=== PATIENT | female | born 1970 | race Caucasian/White ===

== ENCOUNTER → 2017-01-04 | Outpatient (CLI) | payer SELFPAY ==
--- NOTE | 2017-01-04 10:23 | USB ---
Reason for exam: additional evaluation requested from abnormal screening. History: Family history of breast cancer in mother at age 41. Benign excisional biopsy of the right breast, November 2013. Benign excisional biopsy of the right breast, May 2013. Physical Findings: Nurse Summary: Patient complains of right breast lump pea size, comes and goes x 1 month (nurse noy). US Breast Workup Limited RT Technologist: Aubrie Bearden Right breast ultrasound demonstrates a 0.4 x 0.3 x 0.4cm oval, cystic, benign lesion at 9 o'clock nipple. No solid masses. No suspicious sonographic abnormality. These results were verbally communicated with the patient and result sheet given to the patient on 01/04/17. ASSESSMENT: Benign, BI-RAD 2 RECOMMENDATION: Return to routine screening mammogram schedule for both breasts. Back on schedule.
== END | disposition home or self-care (01) ==
LOC: RADUSWWP 09:25
PROVIDERS: ATTEND Obstetrics & Gynecology
DX: R92.8 Other abnormal and inconclusive findings on diagnostic imaging of breast (principal)

== ENCOUNTER → 2018-12-11 | Outpatient (CLI) | payer SELFPAY ==
--- NOTE | 2018-12-12 07:49 | MM ---
Reason for exam: additional evaluation requested from abnormal screening. Last mammogram was performed less than 1 month ago. History: Patient is postmenopausal. Family history of breast cancer in mother at age 41. Benign excisional biopsy of the right breast, November 2013. Benign excisional biopsy of the right breast, May 2013. Physical Findings: Nurse did not find any significant physical abnormalities on exam. MG Work Up Mamm w CAD LT LM and spot compression MLO view(s) were taken of the left breast. Prior study comparison: November 30, 2018, bilateral foundation screening mammo. December 27, 2017, bilateral foundation screening mammo. The breast tissue is heterogeneously dense. This may lower the sensitivity of mammography. Left asymmetries appear similar to priors and improve on spot images. These results were verbally communicated with the patient and result sheet given to the patient on 12/11/18. ASSESSMENT: Benign, BI-RAD 2 RECOMMENDATION: Return to routine screening mammogram schedule for both breasts.
== END | disposition home or self-care (01) ==
LOC: RADMAMWWP 14:54
PROVIDERS: ATTEND Obstetrics & Gynecology
DX: R92.8 Other abnormal and inconclusive findings on diagnostic imaging of breast (principal)
CPT/HCPCS: 77065

== ENCOUNTER → 2020-12-25 | Outpatient (CLI) | payer SELFPAY ==
--- NOTE | 2020-12-25 10:23 | MM ---
Reason for exam: additional evaluation requested from abnormal screening. Last mammogram was performed less than 1 month ago. History: Patient is postmenopausal. Family history of breast cancer in mother at age 41. Benign excisional biopsy of the right breast, November 2013. Benign excisional biopsy of the right breast, May 2013. Physical Findings: Nurse did not find any significant physical abnormalities on exam. MG Work Up Mamm w CAD RT Spot compression CC, spot compression MLO, CC with magnification, LM with magnification, and LM view(s) were taken of the right breast. Prior study comparison: December 23, 2020, bilateral foundation screening mammo. December 20, 2019, bilateral foundation screening mammo. The breast tissue is extremely dense which could obscure a lesion on mammography. Finding: There are suspicious fine, grouped/clustered calcifications in the upper inner quadrant, posterior position of the right breast, may be circumscribed with new density. New finding since December 23, 2020 and December 20, 2019. These results were verbally communicated with the patient and result sheet given to the patient on 12/25/20. ASSESSMENT: Suspicious, BI-RAD 4 RECOMMENDATION: Stereotactic core biopsy of the right breast. Called Dr. Beverly's office with mammographic findings and has scheduled an appointment for the patient for 02/04/21 at 1:[address] Anderson. Biopsy scheduled for 02/05/21 at 8:00. PRELIMINARY REPORT CALLED AND FAXED TO DR. ANDERSON ON 12/25/20.
== END | disposition home or self-care (01) ==
LOC: RADMAMWWP 06:58
PROVIDERS: ATTEND Obstetrics & Gynecology
DX: R92.1 Mammographic calcification found on diagnostic imaging of breast (principal); Z80.3 Family history of malignant neoplasm of breast; Z78.0 Asymptomatic menopausal state
CPT/HCPCS: 77065

== ENCOUNTER → 2021-02-04 | Outpatient (CLI) | payer SELFPAY ==
[2021-02-04 13:22] VITALS: BP 117/74; PULSE 96; RESP 16; TEMP 98.4
--- NOTE | 2021-02-04 13:57 | P.GSHP ---
History of Present Illness H&P Date: 02/04/21 Chief Complaint: Abnormal right breast mammogram Camryn is a 50 year old white female who had a bilateral breast mammogram performed on 1020 721. The patient was noted to have some calcifications of concern in the right breast and additional views of the right breast were performed on 1020 921. Right breast grouped/clustered calcifications were noted in the upper inner quadrant and a stereotactic core biopsy was recommended. In the past she has had a right breast stereotactic core biopsy followed by an open biopsy of the right side 6 months later. These were benign. She was subsequently seen at [facility] where she would of alternating every 6 month MRI and mammogram. The last time these were done was 2014 for the last MRI. She however does get mammograms yearly here at [facility]. The patient does not feel anything of concern in either breast. She is not complaining of any trauma or infection in either breast. Caffeine:2 cups/day nicotine: none, stopped in 1997 for 8 years < 1/PPD chocolate: occasional Family history: Mother: Breast cancer in 40's did well maternal grandfather: melanoma maternal grandmother: colon cancer paternal grandmother: brain tumor Hormonal History: menarche: 14 , breast fed: no, age at first : 19 menopause: Ablation however patient has breakthrough bleeding; starting menopause now control pills: 10 years, stopped at 28 hormones: none Surgical History: tubal gallbladder breast biopsy Medical History: hypothyroid Social History: Nicotine: Negative Alcohol: Negative Drugs: Negative - Constitutional Constitutional: Reports sweats - EENT Eyes: denies blurred vision, denies pain Ears: deny: decreased hearing, tinnitus Ears, nose, mouth and throat: Denies headache, Denies sore throat - Breasts Breasts: bilateral: as per HPI - Cardiovascular Cardiovascular: Denies chest pain, Denies shortness of breath - Respiratory Respiratory: Denies cough, Denies 7 - Gastrointestinal Gastrointestinal: Denies abdominal pain, Denies diarrhea, Denies nausea, Denies vomiting - Genitourinary (Female) Genitourinary: Denies dysuria, Denies hematuria - Menstruation Menstruation: Reports as per HPI - Musculoskeletal Musculoskeletal: Denies myalgias - Integumentary Integumentary: Denies pruritus, Denies rash - Neurological Neurological: Denies numbness, Denies weakness - Psychiatric Psychiatric: Denies anxiety, Denies depression - Endocrine Endocrine: Reports weight change, Denies fatigue - Hematologic/Lymphatic Comment: none - Allergic/Immunologic Allergic/Immunologic: Reports as per HPI Past Medical History Past Medical History: Thyroid Disorder History of Any Multi-Drug Resistant Organisms: None Reported Past Surgical History: Breast Surgery, Cholecystectomy, Tubal Ligation Additional Past Surgical History / Comment(s): right breast benign us core/excisional bx-2014 Past Anesthesia/Blood Transfusion Reactions: No Reported Reaction Past Psychological History: No Psychological Hx Reported Smoking Status: Former smoker Past Alcohol Use History: Occasional Past Drug Use History: None Reported Medications and Allergies Home Medications Medication Instructions Recorded Confirmed Type Ergocalciferol [Vitamin D2 (1250 1,250 mcg PO WEEKLY 01/28/21 02/04/21 History Mcg = 06106 Iu)] Levothyroxine Sodium [Levoxyl] 88 mcg PO DAILY 01/28/21 02/04/21 History Allergies Allergy/AdvReac Type Severity Reaction Status Date / Time clarithromycin [From Biaxin] AdvReac Vomiting Verified 02/04/21 13:15 codeine AdvReac Vomiting Verified 02/04/21 13:15 Surgical - Exam Vital Signs Temp Pulse Resp BP 98.4 F 96 16 117/74 02/04/21 13:16 02/04/21 13:16 02/04/21 13:16 02/04/21 13:16 - General no distress - Eyes normal ocular movement - ENT no hearing loss - Neck trachea midline - Respiratory normal respiratory effort - Cardiovascular Rhythm: regular Heart Sounds: normal: S1, S2 - Abdomen Abdomen: soft - Integumentary normal turgor - Neurologic no disoriented, no combative - Musculoskeletal normal gait - Psychiatric oriented to time, oriented to person, oriented to place, speech is normal, memory intact Breast Exam: BRA: 36D inspection: bilateral grade 2/3 ptosis Operation: Right breast: Well-healed scar from prior surgery, no dominant masses or nodules of concern dense breast Right axilla: No adenopathy of concern Left breast: Positional exam fibrocystic changes dense breasts no dominant masses or nodules of concern Left axilla: No adenopathy of concern Results Mammogram reviewed personally with Dr. Fermin, additional views to be reviewed Assessment and Plan Assessment: Impression: Microcalcifications of concern right breast upper inner quadrant Plan: Stereotactic core biopsy right breast Risk and benefits of the procedure discussed with the patient. She understands and wishes to proceed. Risks include but are not limited to bleeding, infection, reaction to the anesthetic. There is a possibility that the lesion will not be well seen on the stereotactic pipe stripper film in which case it may be necessary to cancel the procedure. Alternatives such as watchful waiting or open biopsy I discussed but not recommended. Cc: Dr. Forde, Dr. Beverly
== END ==
LOC: WWCWWP 12:56
PROVIDERS: ATTEND Surgery
DX: R92.0 Mammographic microcalcification found on diagnostic imaging of breast (principal); E03.9 Hypothyroidism, unspecified; Z87.891 Personal history of nicotine dependence; Z88.1 Allergy status to other antibiotic agents; Z88.5 Allergy status to narcotic agent

== ENCOUNTER → 2021-02-05 | Day surgery (SDC) | payer SELFPAY ==
[2021-02-05 07:09] VITALS: RESP 16
--- NOTE | 2021-02-05 08:48 | P.PCN ---
Date of Procedure: 02/05/21 Preoperative Diagnosis: microcalcifications of concern right breast Postoperative Diagnosis: Same Procedure(s) Performed: sterotactic core biopsy of the right breast Anesthesia: local Surgeon: Darby Anderson Pathology: other (Breast tissue/microcalcifications noted inguinal biopsy specimen) Condition: stable Disposition: same day Indications for Procedure: Microcalcifications of concern right breast upper inner quadrant Operative Findings: Microcalcifications of concern noted in core biopsy specimen Description of Procedure: The patient is a 50-year-old white female noted to have microcalcifications of concern on her mammogram of [id number] in the right breast, upper inner quadrant. Stereotactic core biopsy was recommended. Risks and benefits of the procedure were discussed with the patient. Risks include but are not limited to bleeding, infection, reaction to the anesthetic. Alternatives such as watchful waiting or open biopsy were discussed but not recommended. The patient wished to proceed with stereotactic core biopsy. The patient was taken to the stereotactic core biopsy room. A presiding judge film was obtained. A medial to lateral approach was utilized. The area of concern was identified. The lesion was targeted. The breast was prepped using Betadine. 20 mL of 1% lidocaine were used to anesthetize the area of concern. A 9-gauge vacuum-assisted core rotating biopsy needle was driven to the correct coordinates. A prefire film was obtained and the needle was noted to be in the correct location. This was followed by a post-fire film noting the needle to be in the correct location. 22 core biopsies were obtained. The area was lavaged. Radiograph of the specimen revealed the calcifications of concern had been obtained. A secure melodie top hat clip was placed. This was noted to be in the correct location. The patient will follow with Dr. Escudero next week. The specimen was sent to pathology. The patient tolerated the procedure in stable condition. CC: Dr. Beverly, Dr. Forde
[2021-02-05 09:15] VITALS: BP 130/84; PULSE 89; TEMP 97.6
--- NOTE | 2021-02-05 11:00 | MM ---
The patient is a 50-year-old white female noted to have microcalcifications of concern on her mammogram of [id number] in the right breast, upper inner quadrant. Stereotactic core biopsy was recommended. Risks and benefits of the procedure were discussed with the patient. Risks include but are not limited to bleeding, infection, reaction to the anesthetic. Alternatives such as watchful waiting or open biopsy were discussed but not recommended. The patient wished to proceed with stereotactic core biopsy. The patient was taken to the stereotactic core biopsy room. A amusement machine mechanic film was obtained. A medial to lateral approach was utilized. The area of concern was identified. The lesion was targeted. The breast was prepped using Betadine. 20 mL of 1% lidocaine were used to anesthetize the area of concern. A 9-gauge vacuum-assisted core rotating biopsy needle was driven to the correct coordinates. A prefire film was obtained and the needle was noted to be in the correct location. The needle was fired. This was followed by a post-fire film noting the needle to be in the correct location. 22 core biopsies were obtained. The area was lavaged. Radiograph of the specimen revealed the calcifications of concern had been obtained. A secure melodie top hat clip was placed. This was noted to be in the correct location. The patient will follow with Dr. Escudero next week. The specimen was sent to pathology. The patient tolerated the procedure in stable condition. [facility] CENTERObie
== END ==
LOC: RADMAMWWP 06:56
PROVIDERS: ATTEND Surgery
DX: N60.01 Solitary cyst of right breast (principal)
CPT/HCPCS: 88305; 19081; J2001

== ENCOUNTER → 2021-02-12 | Outpatient (CLI) | payer SELFPAY ==
[2021-02-12 13:36] VITALS: BP 121/82; PULSE 89; RESP 16; TEMP 98.1
--- NOTE | 2021-02-12 13:45 | P.PN ---
Subjective Progress Note Date: 02/12/21 Principal diagnosis: fibro-cystic breast changes Camryn 50-year-old female status post posterior tactic core biopsy of the right breast on [id number]. Pathology was benign and concordant. The patient tolerated the procedure without difficulty. Objective - Vital Signs Vital signs: Vital Signs Temp 98.1 F 02/12/21 13:32 Pulse 89 02/12/21 13:32 Resp 16 02/12/21 13:32 BP 121/82 02/12/21 13:32 Pulse Ox Intake & Output 02/11/21 02/12/21 02/12/21 18:59 06:59 18:59 Weight 59.874 kg - Integumentary Integumentary Comment(s): Assisted right breast clean and dry mild ecchymosis Assessment and Plan Assessment: Impression: Fibrocystic breast changes Plan: Repeat right breast mammogram in 6 months with physician exam at that time Cc: Dr. Forde
== END ==
LOC: WWCWWP 13:20
PROVIDERS: ATTEND Surgery
DX: N60.11 Diffuse cystic mastopathy of right breast (principal); Z88.1 Allergy status to other antibiotic agents; Z88.5 Allergy status to narcotic agent

== ENCOUNTER → 2021-08-09 | Outpatient (CLI) | payer SELFPAY ==
--- NOTE | 2021-08-09 14:15 | MM ---
Reason for Exam: Follow-up at short interval from prior study. Last screening mammogram was performed 8 month(s) ago. Patient History: Menarche at age 13. First Full-Term at age 19. Postmenopausal. 11/2013, Benign Excisional Biopsy on the right side. 05/2013, Benign Excisional Biopsy on the right side. 02/05/2021, Benign Core Biopsy on the right side. Mother had breast cancer, age 41. Risk Values: Meron 5 year model risk: 2.8%. NCI Lifetime model risk: 22.7%. Prior Study Comparison: 12/20/2019 Bilateral Screening Mammogram, [facility]. 12/23/2020 Bilateral Screening Mammogram, [facility]. 12/25/2020 Right Diagnostic Mammogram, [facility]. Tissue Density: Right: The breast tissue is heterogeneously dense. This may lower the sensitivity of mammography. Findings: Analyzed By CAD. Previous biopsy marker clips are in place. No evidence for a new mass or suspicious clustered microcalcifications. Overall Assessment: Benign, BI-RAD 2 Management: Screening Mammogram of both breasts in 6 months. A clinical breast exam by your physician is recommended on an annual basis and results should be correlated with mammographic findings. This exam should not preclude additional follow-up of suspicious palpable abnormalities. Results were given to the patient verbally at the time of exam. Electronically signed and approved by: Manny Fermin M.D. Radiologis
== END | disposition home or self-care (01) ==
LOC: RADMAMWWP 13:46
PROVIDERS: ATTEND Surgery
DX: R92.8 Other abnormal and inconclusive findings on diagnostic imaging of breast (principal); Z78.0 Asymptomatic menopausal state; Z80.3 Family history of malignant neoplasm of breast
CPT/HCPCS: 77061; 77065

== ENCOUNTER → 2021-12-27 | Outpatient (CLI) | payer SELFPAY ==
--- NOTE | 2021-12-27 14:25 | MM ---
Reason for Exam: Additional evaluation requested from abnormal screening. Last screening mammogram was performed less than 1 month ago. Patient History: Menarche at age 13. First Full-Term at age 19. Postmenopausal. 11/2013, Benign Excisional Biopsy on the right side. 05/2013, Benign Excisional Biopsy on the right side. 02/05/2021, Benign Core Biopsy on the right side. Mother had breast cancer, age 41. Risk Values: Meron 5 year model risk: 2.8%. NCI Lifetime model risk: 22.7%. Prior Study Comparison: 12/25/2020 Right Diagnostic Mammogram, [facility]. 08/09/2021 Right MG 3D diag mammo w/cad RT, [facility]. 12/20/2021 Bilateral MG foundation screening mammo, [facility]. Tissue Density: Left: The breast tissue is heterogeneously dense. This may lower the sensitivity of mammography. Findings: Analyzed By CAD. The questioned areas of asymmetric density become less defined on additional views. Precautionary six-month follow up recommended. Overall Assessment: Probably benign, BI-RAD 3 Management: Diagnostic Mammogram of the left breast in 6 months. Note the patient's very high Meron score and overall lifetime risk for the development of breast cancer. Consider specialist referral to assess eligibility for a risk reducing agent. In addition, the patient may qualify for future screening with alternating mammogram and breast MRI. Results were given to the patient verbally at the time of exam. Electronically signed and approved by: Dallas Zimmerman M.D. Radiologist
== END | disposition home or self-care (01) ==
LOC: RADMAMWWP 13:40
PROVIDERS: ATTEND Obstetrics & Gynecology
DX: R92.8 Other abnormal and inconclusive findings on diagnostic imaging of breast (principal); Z78.0 Asymptomatic menopausal state; Z80.3 Family history of malignant neoplasm of breast
CPT/HCPCS: 77061; 77065

== ENCOUNTER → 2022-07-07 | Outpatient (CLI) | payer SELFPAY ==
--- NOTE | 2022-07-07 11:32 | MM ---
Reason for Exam: Follow-up at short interval from prior study. Last screening mammogram was performed 7 month(s) ago. Patient History: Menarche at age 13. First Full-Term at age 19. Postmenopausal. 11/2013, Benign Excisional Biopsy on the right side. 05/2013, Benign Excisional Biopsy on the right side. 02/05/2021, Benign Core Biopsy on the right side. Mother had breast cancer, age 41. Risk Values: Meron 5 year model risk: 2.9%. NCI Lifetime model risk: 22.3%. Prior Study Comparison: 01/04/2017 Right Diagnostic Ultrasound, [facility]. 12/27/2017 Bilateral Screening Mammogram, [facility]. 11/30/2018 Bilateral Screening Mammogram, [facility]. 12/11/2018 Left Diagnostic Mammogram, [facility]. 12/20/2019 Bilateral Screening Mammogram, [facility]. 12/23/2020 Bilateral Screening Mammogram, [facility]. 12/25/2020 Right Diagnostic Mammogram, [facility]. 08/09/2021 Right MG 3D diag mammo w/cad RT, [facility]. 12/20/2021 Bilateral MG foundation screening mammo, [facility]. 12/27/2021 Left MG 3D work up w/cad LT, [facility]. Tissue Density: Left: The breast tissue is heterogeneously dense. This may lower the sensitivity of mammography. Findings: Analyzed By CAD. No significant change from prior exams. Areas of asymmetric density remains similar. Given the patient's risk scores, further ultrasound evaluation recommended. Overall Assessment: Incomplete: need additional imaging evaluation, BI-RAD 0 Management: Diagnostic Breast Ultrasound of the left breast. Given dense tissues and patient's risk scores. Electronically signed and approved by: Dallas Zimmerman M.D. Radiologist
--- NOTE | 2022-07-07 12:09 | USB ---
Reason for Exam: Clinical finding. Patient History: Menarche at age 13. First Full-Term at age 19. Postmenopausal. 11/2013, Benign Excisional Biopsy on the right side. 05/2013, Benign Excisional Biopsy on the right side. 02/05/2021, Benign Core Biopsy on the right side. Mother had breast cancer, age 41. Risk Values: Meron 5 year model risk: 2.9%. NCI Lifetime model risk: 22.3%. Technique: Method: Whole Breast Handheld. Prior Study Comparison: 08/09/2021 Right MG 3D diag mammo w/cad RT, [facility]. 12/20/2021 Bilateral MG foundation screening mammo, [facility]. 12/27/2021 Left MG 3D work up w/cad LT, [facility]. Findings: The whole breast of the left breast, the axilla of the left breast and the retroareolar of the left breast were scanned. A complete US of all four quadrants of the breast, axilla, and retro-areolar region were reviewed. There is a benign 6 mm cyst at 11:00. There is also a benign-appearing 7 mm cyst cluster at 12:00. Dense tissues are present throughout. No other solid or cystic lesion or axillary lymphadenopathy. Overall Assessment: Benign, BI-RAD 2 Management: Screening Mammogram of both breasts in 6 months. Patient should continue monthly self-breast exams. A clinical breast exam by your physician is recommended on an annual basis. This exam should not preclude additional follow-up of suspicious palpable abnormalities. Note on Meron scores and lifetime risk: 1. A Meron score greater than 3% is considered moderate risk. If this is the case, consider specialist referral to assess eligibility for a risk reducing agent. 2. If overall lifetime risk for the development of breast cancer is 20% or higher, the patient may qualify for future screening with alternating mammogram and breast MRI. Results were given to the patient verbally at the time of exam. Electronically signed and approved by: Dallas Zimmerman M.D. Radiologist
== END | disposition home or self-care (01) ==
LOC: RADMAMWWP 10:51
PROVIDERS: ATTEND Obstetrics & Gynecology
DX: R92.8 Other abnormal and inconclusive findings on diagnostic imaging of breast (principal); Z78.0 Asymptomatic menopausal state; Z80.3 Family history of malignant neoplasm of breast
CPT/HCPCS: 77061; 77065